=== PATIENT | male | born 1945 | race Caucasian/White ===

== ENCOUNTER 2025-01-05 20:58 | Emergency (ER) | payer MEDICARE, SELFPAY ==
--- NOTE | 2025-01-05 | ECG_ITS ---
Test Reason : CHEST PAIN Blood Pressure : */* mmHG Vent. Rate : 52 BPM Atrial Rate : 52 BPM P-R Int : 140 ms QRS Dur : 84 ms QT Int : 422 ms P-R-T Axes : * 143 126 degrees QTcB Int : 392 ms Sinus bradycardia Right axis deviation Nonspecific ST abnormality Abnormal ECG No previous ECGs available Referred By: Generic ED Physician Electronically Signed By: SHASHI ESCOBEDO
--- NOTE | ~2025-01-05 | XR_ITS ---
CLINICAL HISTORY: chest pain 2 view chest x-ray Comparison: None Findings: No consolidation or effusion. Heart size is normal. Aortic atherosclerosis. No acute fracture. IMPRESSION: 1. No acute findings. This document has been electronically signed by: Devin Phillips MD on 01/05/2025 22:31:27
--- NOTE | ~2025-01-05 | CT_ITS ---
CLINICAL HISTORY: L anterior CP, ?fall CT chest with contrast Comparison: None Findings: The heart is normal size. Severe aortic atherosclerosis. No aneurysm. Great vessels are patent. The visualized thyroid and mediastinum are unremarkable. No pulmonary embolus. Mild dependent atelectasis in the right lower lobe. Lungs are otherwise clear. No pleural effusion or pneumothorax. Degenerative changes of the spine. No acute fracture. Please refer to the separate CT AP report for abdomen findings. IMPRESSION: No acute intrathoracic findings. This document has been electronically signed by: Devin Phillips MD on 01/06/2025 00:08:58
--- NOTE | ~2025-01-05 | CT_ITS ---
CLINICAL HISTORY: L ant chest LUQ ABD pain, leva lipase CT abdomen and pelvis with contrast Comparison: None Findings: No consolidation or effusion. Bilateral low-density adrenal nodules measuring 2.0 cm on the right and 1.2 cm on the left. Nodules along the surface of the posterior right hepatic lobe measuring up to 5.0 x 3.2 cm. 3.4 cm peripherally calcified soft tissue mass in the posterior left upper quadrant. 0.6 cm soft tissue nodule in the anterior left upper quadrant. Gallbladder and pancreas are within normal limits. No hydronephrosis. Symmetric contrast enhancement of the kidneys. 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 No bowel obstruction, pneumatosis or pneumoperitoneum. Colonic diverticulosis without acute inflammation. Normal appendix. Severe aortic atherosclerosis. No aneurysm. No enlarged abdominopelvic lymph nodes. Prostatomegaly. Urinary bladder is within normal limits. Degenerative changes of the spine. IMPRESSION: 1. No acute intraabdominal or pelvic pathology. 2. Soft tissue nodules along the posterior right hepatic lobe surface and in the left upper quadrant. This could be splenosis however other etiologies such as metastases can not be excluded. 3. Low-density bilateral adrenal nodules measuring 2.0 cm right and 1.2 cm left, these may be adrenal adenomas and are incompletely characterized on this study. Recommend nonemergent MRI or CT of the adrenal glands for further evaluation This document has been electronically signed by: Devin Phillips MD on 01/06/2025 00:20:59
--- NOTE | ~2025-01-05 | CT_ITS ---
CLINICAL HISTORY: confusion, ?fall CT head without contrast Comparison: None Findings: No intra-axial mass, midline shift, hydrocephalus, or acute hemorrhage. Diffuse volume loss. Periventricular and subcortical white matter hypoattenuation likely chronic small-vessel ischemic changes. Intracranial atherosclerosis. Mild mucosal thickening in the right maxillary sinus. No acute findings in the orbits. No skull fracture. IMPRESSION: 1. No acute intracranial findings. This document has been electronically signed by: Devin Phillips MD on 01/05/2025 23:04:10
[2025-01-05 21:03] VITALS: BP 124/76; PULSE 58; O2SAT 100
[2025-01-05 21:10] VITALS: BP 105/68; PULSE 61; RESP 18; O2SAT 100; BMI 26.6
--- NOTE | 2025-01-05 21:31 | ED.CHESTPAIN ---
HPI - Chest Pain General Chief Complaint: Chest Pain Stated Complaint: chest pain x 1hr Time Seen by Provider: 01/05/25 21:14 Source: patient and EMS Mode of arrival: EMS Limitations: no limitations History of Present Illness ED Provider: Brenna Carrasquillo NP HPI narrative: Patient is a 79-year-old male with past medical history of hypertension who presents emergency department via EMS. When asking the patient why he is here today he states he does not recall why, he is not sure how he got here, he additionally is not certain who might have called EMS. Per EMS report patient called. He lives alone. When asked how he is feeling he endorses having pain and pointing to the left anterior chest. He has a hard time describing the pain. He did not have the pain earlier this morning but seems it would not have come on throughout today. When asked he admits to having nausea over the past few days but denies any vomiting. His daughters are at bedside, they do admit that he has been having memory issues over the past year that is typically exacerbated when he drinks alcohol. He typically drinks daily about a half a pt of vodka and a 6 pack of beers. Daughters report that he has never really quit drinking for quite some time but are not aware of any history of DTs/alcohol withdrawal seizures. They report at this time his mentation appears to be at baseline and what they would expect of him when he is drinking at night. They did notice that he has an abrasion to his left elbow they are not certain whether he may have fallen. He is moving the elbow freely without difficulty. Related Data Allergies Allergy/AdvReac Type Severity Reaction Status Date / Time No Known Allergies Allergy Verified 01/05/25 21:13 Review of Systems Review of Systems: Yes all other systems are reviewed and are negative [facility] Past Medical History Attestation statement: The following information was validated with the patient. Source: old records reviewed Social History Social History Alcohol intake: current Alcohol intake frequency: 3 or more drinks per day Alcohol type: hard liquor Smoked in Last 30 Days: Yes Use of substances other than those prescribed or required for medical reasons: No Advance Directives: No Advance Directives Information Provided: No Do you have a plan to hurt others: No Plan Physical Exam Vital Signs: Vital Signs: Last Vital Signs Temp 98.4 F 01/06/25 02:52 Pulse 58 01/06/25 02:52 Resp 16 01/06/25 02:52 BP 133/65 01/06/25 02:52 Pulse Ox 98 01/06/25 02:52 O2 Del Method Room Air 01/06/25 02:52 BMI result Body Mass Index 26.6 Appearance: Alert.?Oriented to person, place and time. No acute distress.?Normal affect. Head: Normocephalic, atraumatic Eyes: Pupils equal, round and reactive to light.? EOMI. No nystagmus. ENT: Pharynx normal.?? Neck: Normal inspection.? Neck supple.??No JVD. Full range of motion, no nuchal rigidity. No midline cervical spine tenderness, step-offs, deformities. CVS: Heart sounds normal. Normal heart rate and rhythm.? Pulses normal.?? Respiratory: No respiratory distress.? Lung sounds diminished bilaterally. No crepitus. No palpable deformities of the chest wall. Significant tenderness upon palpation of the left anterior lower chest wall. Abdomen: Soft left upper quadrant tenderness upon palpation Normoactive bowel sounds. No pulsatile mass.?? Skin: Skin warm and dry.? Normal skin color.? ?? Extremities: No lower extremity edema.? No calf ttp?left elbow with superficial abrasion, full range of motion, 2+ radial pulse, unlikely fracture dislocation Neuro: Moves all extremities spontaneously. Sensation intact bilaterally. CN II-XII intact. No focal neuro deficits. Ambulates with unsteady gait Course Reevaluation(s) Reevaluation #1: CT of the head and chest without acute pathology. CT of the abdomen and pelvis without evidence to suggest acute pancreatitis. There is soft tissue nodules along the posterior right hepatic lobe and in the left upper quadrant radiologist impression may be splenosis versus alternative etiology such as metastasis, bilateral adrenal nodules, recommend outpatient MRI and/or CT of the adrenal glands. Patient's daughter is at bedside I updated her on these findings. Plan at this time is to attempt clear liquid p.o. trialed to determine whether this exacerbates his pain greatly or not, in addition reviewed has a chest wall contusion as etiology of pain given it is reproducible nature and concern for a possible fall. reviewed with my attending Dr. Myers, this with chronic pancreatitis as result of the elevated lipase. I did review this case with hospitalist, Dr. Chacko, did not feel that this warranted admission, lower suspicion for acute pancreatitis, given atypical presentation of the pain no CT findings to suggest such. Patient's daughter is aware of the outpatient follow-up required for the incidental nodules as previously mentioned. Daughter is amenable to driving patient home tonight if he is able to be discharged. Pain improved greatly after receiving Toradol, tolerating clear liquids without exacerbation of pain Pending delta troponin to exclude ACS. Patient signed out to ED attending Dr. Keita pending repeat troponin, if normal I anticipate discharge home Time: 01:58 Medications Administered Discontinued Medications Generic Name Dose Route Start Last Admin Trade Name Freq PRN Reason Stop Dose Admin Sodium Chloride 1,000 mls @ 999 mls/hr 01/05/25 22:15 01/06/25 00:26 Ns IV 01/05/25 23:15 Infused .Q1H1M ANA LUISA Infusion Iohexol 85 ml 01/05/25 22:30 01/05/25 22:31 Iohexol 350 Mg/Ml 100 Ml Infus..Btl IV 01/05/25 22:31 85 ml ONCE ONE Administration Ketorolac Tromethamine 15 mg 01/06/25 01:04 01/06/25 01:15 Ketorolac Tromethamine 15 Mg/Ml Vial IVPUSH 01/06/25 01:05 15 mg ONCE ONE Administration Medical Decision Making Medical Decision Making MDM Narrative: Patient is a 74-year-old male past medical history of hypertension who presents to the emergency department for evaluation with complaint of chest pain. No evidence of volume overload or shock on exam. EKG revealing a sinus bradycardia with ventricular rate of 52, QTC of 392, J-point elevation, no T-wave inversion, without evidence of STEMI. Low suspicion for acute PE (Wells low risk), thoracic aortic dissection, cardiac effusion / tamponade. Is uncertain whether he may have fallen given the abrasion on his elbow, he is notable tenderness in the anterior chest wall without obvious crepitus, lung sounds are diminished bilaterally, however obtain CXR is without evidence of pneumothorax. Given possibility for fall, he has confusion though according to daughters this appears to be due sign, obtaining CT head to exclude ICH, SDH, fracture, CT of the chest with contrast to exclude rib fracture, acute injury, CT abdomen and pelvis rule out pancreatitis. He is drinking daily, no reported history of alcohol withdrawal seizures or DTs, will monitor CIWA. CBC is without leukocytosis, has a macrocytic anemia that does not meet transfusion criteria, no thrombocytopenia. CBC without electrolyte derangement, no LISSETTE, LFTs within normal range, high sensitive troponin below detectable limits. Lipase is notably elevated 765, likely acute alcoholic pancreatitis. Alcohol level of 284. 01/06/2025 at 03:41 hours,Dr. Ej Keita's note: I assumed care of this patient from my colleague, nurse practitioner Brenna Carrasquillo at 02:00 hours pending the patient's repeat troponin. Patient was 1st troponin was 3.8 and repeat troponin was 4.9 which is reassuring and I did discuss this with the patient and the patient's daughter. The patient's abdominal exam revealed no significant abdominal tenderness and despite having the elevated lipase I do not think that he was pancreatitis based on this exam. He does have tenderness with palpation of his left lower chest wall over his ribs, there is no bruising this area but I suspect that his pain he was secondary to a contusion to this area most likely from a fall due to his alcohol intoxication. The patient was given printed and verbal instructions and discharged home. Differential Diagnosis Differential Diagnoses: The differential diagnosis associated with the presentation includes (See narrative above) Admission/Observation Consideration of admission/observation: Escalation of care including admission/observation considered (See narrative above and course narrative for further detail) Lab Data MDM Lab Attestation statement: I reviewed the patient's lab results. 01/05/25 21:21 01/05/25 21:29 Labs: Lab Results 01/05/25 01/05/25 01/06/25 Range/Units 21:21 21:29 02:18 WBC 8.2 (4.8-10.8) X10*3/uL RBC 4.12 L (4.60-5.80) X10*6/uL Hgb 13.9 L (14.0-18.0) g/dl Hct 40.8 L (42.0-52.0) % MCV 99.0 H (80.0-98.0) fL MCH 33.7 H (27.0-33.0) pg MCHC 34.1 (31.0-36.0) g/dl RDW 12.9 (11.0-16.0) % Plt Count 238 (160-400) X10*3/uL MPV 10.3 (9.4-12.4) fL Immature Gran % (Auto) 0.2 (0.0-0.4) % Neut % (Auto) 49.8 (45-73) % Lymph % (Auto) 39.1 (20-40) % Millard % (Auto) 7.2 (2-11) % Eos % (Auto) 3.0 (0-4) % Baso % (Auto) 0.7 (0-2) % Lymph # (Auto) 3.2 (1.2-4.9) X10*3/uL Millard # (Auto) 0.6 (0.1-1.2) X10*3/uL Eos # (Auto) 0.3 (0.0-0.4) X10*3/uL Baso # (Auto) 0.1 (0.0-0.2) X10*3/uL Abs Immat Gran (auto) 0.02 (0.00-0.03) X10*3/uL Absolute Neuts (auto) 4.1 (2.0-8.3) x10*3/uL Absolute Nucleated RBC 0.000 (0.0-0.012) X10*3/uL Nucleated RBC % (auto) 0.0 (0.0-0.2) /100WBC Sodium 141 (135-145) mmol/L Potassium 4.9 (3.3-5.1) mmol/L Chloride 106 (96-108) mmol/L Carbon Dioxide 24 (22-29) mmol/L Anion Gap 16 (12-20) BUN 17 H (9-16) mg/dL Creatinine 0.68 (0.5-1.4) mg/dL Estim Creat Clear Calc 89.5 Estimated GFR > 60 Random Glucose 112 (60-115) mg/dL Calcium 9.3 (8.4-10.2) mg/dL Magnesium 2.4 (1.6-2.6) mg/dL Total Bilirubin 0.2 (0.0-1.0) mg/dL AST 32 (5-37) U/L ALT 28 (0-40) U/L Alkaline Phosphatase 98 (39-117) U/L Troponin I High Sens 3.8 4.9 (<3.5-35.0) ng/L B-Natriuretic Peptide 153 H (<100) pg/mL Total Protein 7.5 (6.5-8.0) g/dL Albumin 3.8 (3.5-5.0) g/dL Lipase 765 H (8-78) U/L Ethyl Alcohol 284 mg/dL Influenza Type A (PCR) NEGATIVE (Negative) Influenza Type B (PCR) NEGATIVE (Negative) RSV RNA Qual (PCR) NEGATIVE (Negative) SARS-CoV-2 RNA (RT-PCR) NEGATIVE (Negative) Independent Interpretation I performed an independent interpretation of an: EKG (See narrative above) and CT Scan (No ICH, no SDH) Radiology Impression Discussion of test interpretation with radiology: I have reviewed the radiologist's reading. Radiologist Impression: IMPRESSION: CXR 2 view 1. No acute findings. CT head without contrast Comparison: None Findings: No intra-axial mass, midline shift, hydrocephalus, or acute hemorrhage. Diffuse volume loss. Periventricular and subcortical white matter hypoattenuation likely chronic small-vessel ischemic changes. Intracranial atherosclerosis. Mild mucosal thickening in the right maxillary sinus. No acute findings in the orbits. No skull fracture. IMPRESSION: 1. No acute intracranial findings. CT chest with contrast Comparison: None Findings: The heart is normal size. Severe aortic atherosclerosis. No aneurysm. Great vessels are patent. The visualized thyroid and mediastinum are unremarkable. No pulmonary embolus. Mild dependent atelectasis in the right lower lobe. Lungs are otherwise clear. No pleural effusion or pneumothorax. Degenerative changes of the spine. No acute fracture. Please refer to the separate CT AP report for abdomen findings. IMPRESSION: No acute intrathoracic findings. IMPRESSION: CT AP with contrast 1. No acute intraabdominal or pelvic pathology. 2. Soft tissue nodules along the posterior right hepatic lobe surface and in the left upper quadrant. This could be splenosis however other etiologies such as metastases can not be excluded. 3. Low-density bilateral adrenal nodules measuring 2.0 cm right and 1.2 cm left, these may be adrenal adenomas and are incompletely characterized on this study. Recommend nonemergent MRI or CT of the adrenal glands for further evaluation Independent Historian Clinical information obtained from an independent historian. History obtained from or confirmed by: Other (Daughters as per HPI) Discharge Plan Discharge Clinical Impression: Chest pain, Adrenal nodule, Alcohol use disorder Patient Disposition: Home, Self-Care Instructions: Chest Pain (ED), Alcohol Use Disorder (ED) Additional Instructions: As mentioned, his imaging today does not show any acute/obvious cause for the pain that he is experiencing. We did discuss concern for a potential fall given the abrasions on his arm, pain in his chest may be secondary to internal bruising/contusion can be very painful. He received a dose of Toradol/and IV anti-inflammatory meds in the emergency department with great improvement in his pain. Additionally as mentioned, there were incidental nodules noted in the CT scan of his abdomen and pelvis which should be discussed with his primary care provider to arrange for further outpatient follow-up and evaluation. Nodule seen on this type of imaging, can be difficult to differentiate between whether this is benign or malignant/cancerous, so it is very important that you follow-up closely with primary care doctor for further evaluation. IMPRESSION: CT abdomen and pelvis with IV contrast 1. No acute intraabdominal or pelvic pathology. 2. Soft tissue nodules along the posterior right hepatic lobe surface and in the left upper quadrant. This could be splenosis however other etiologies such as metastases can not be excluded. 3. Low-density bilateral adrenal nodules measuring 2.0 cm right and 1.2 cm left, these may be adrenal adenomas and are incompletely characterized on this study. Recommend nonemergent MRI or CT of the adrenal glands for further evaluation Referrals: Physician,Monalisa J [Primary Care Provider] - Print Language: Georgian
[2025-01-05 21:38] LABS: MANUAL DIFF FLAG NO
[2025-01-05 21:40] LABS: Basophils Absolute Auto 0.1 X10*3/uL (0.0-0.2); Basophils Percent Auto 0.7 % (0-2); Eosinophils Absolute Auto 0.3 X10*3/uL (0.0-0.4); Hematocrit 40.8 % (42.0-52.0); Hemoglobin 13.9 g/dl (14.0-18.0); Imm Gran Abs Auto 0.02 X10*3/uL (0.00-0.03); Imm Gran Pct Auto 0.2 % (0.0-0.4); Lymphocytes Absolute Auto 3.2 X10*3/uL (1.2-4.9); Lymphocytes Percent Auto 39.1 % (20-40); Mean Corpuscular HGB Conc 34.1 g/dl (31.0-36.0); Mean Corpuscular Hemoglobin 33.7 pg (27.0-33.0); Mean Platelet Volume 10.3 fL (9.4-12.4); Monocytes Absolute Auto 0.6 X10*3/uL (0.1-1.2); Monocytes Percent Auto 7.2 % (2-11); Neutrophils Absolute Auto 4.1 x10*3/uL (2.0-8.3); Neutrophils Percent Auto 49.8 % (45-73); Platelet Count 238 X10*3/uL (160-400); Red Blood Count 4.12 X10*6/uL (4.60-5.80); Red Cell Distribution Width 12.9 % (11.0-16.0); White Blood Count 8.2 X10*3/uL (4.8-10.8)
[2025-01-05 21:58] LABS: Alanine Aminotransferase 28 U/L (0-40); Albumin Level 3.8 g/dL (3.5-5.0); Alkaline Phosphatase 98 U/L (39-117); Anion Gap 16 (12-20); Aspartate Amino Transferase 32 U/L (5-37); Bilirubin Total 0.2 mg/dL (0.0-1.0); Blood Urea Nitrogen 17 mg/dL (9-16); Calcium 9.3 mg/dL (8.4-10.2); Carbon Dioxide 24 mmol/L (22-29); Chloride 106 mmol/L (96-108); Creatinine Clr Calc Pharmacy 89.5; Estimated Glomerular Filt Rate > 60; Ethanol 284 mg/dL; Glucose Random 112 mg/dL (60-115); Magnesium 2.4 mg/dL (1.6-2.6); Potassium 4.9 mmol/L (3.3-5.1); Sodium 141 mmol/L (135-145); Total Protein 7.5 g/dL (6.5-8.0)
[2025-01-05 22:03] LABS: Troponin-I High Sensitivity 3.8 ng/L (<3.5-35.0)
[2025-01-05 22:04] LABS: B Type Natriuretic Peptide 153 pg/mL (<100)
[2025-01-05 22:08] LABS: Lipase 765 U/L (8-78)
[2025-01-05 22:16] LABS: Influenza A PCR NEGATIVE (Negative); Influenza B PCR NEGATIVE (Negative); Resp Syncy Virus RNA Qual PCR NEGATIVE (Negative); SARS COV2 PCR INHOUSE NEGATIVE (Negative)
[2025-01-05] MEDS: iohexoL 350 MG/ML 100 ML INFUS..BTL 85 ML IV (22:31)
[2025-01-05] MEDS: 0.9 % Sodium Chloride 1,000 ML 999 ML IV (22:42)
[2025-01-05 23:03] VITALS: BP 125/58; PULSE 67; RESP 16; O2SAT 97
[2025-01-06 00:11] VITALS: BP 131/58; PULSE 57; RESP 17; TEMP 36.4; O2SAT 99
--- NOTE | 2025-01-06 00:30 | PC.NURSE ---
assumed care of pt at 23:15
[2025-01-06] MEDS: Ketorolac Tromethamine 15 MG/ML VIAL IVPUSH (01:15)
[2025-01-06 02:46] LABS: Troponin-I High Sensitivity 4.9 ng/L (<3.5-35.0)
[2025-01-06 02:52] VITALS: BP 133/65; PULSE 58; RESP 16; TEMP 36.9; O2SAT 98
[2025-01-06 04:12] VITALS: BP 137/69; PULSE 60; RESP 16; TEMP 36.9; O2SAT 97
== END 2025-01-06 04:14 | disposition home or self-care (01) ==
PROVIDERS: Emergency Medicine; Nurse Practitioner Family; Emergency Provider Emergency Medicine Emergency Medical Services
DX: R07.9 Chest pain, unspecified (principal); E27.9 Disorder of adrenal gland, unspecified; F10.99 Alcohol use, unspecified with unspecified alcohol-induced disorder; Y90.8 Blood alcohol level of 240 mg/100 ml or more; R10.12 Left upper quadrant pain; Z03.818 Encounter for observation for suspected exposure to other biological agents ruled out
CPT/HCPCS: 0241U; 36415; 70450; 71046; 71260; 74177; 80053; 80307; 83690; 83735; 83880; 84484; 85025; 93005; 96361; 96374; 99284; 99285; J1885; Q9967

== ENCOUNTER → 2025-01-05 21:05 | Outpatient (BNV) | payer MEDICARE, SELFPAY | PROVIDERS: Emergency Provider Emergency Medicine Emergency Medical Services; Visit Provider Internal Medicine | DX: R07.9 Chest pain, unspecified (principal); R00.1 Bradycardia, unspecified; R94.31 Abnormal electrocardiogram [ECG] [EKG] | CPT/HCPCS: 93010 ==

== ENCOUNTER → 2025-01-05 21:28 | Outpatient (BNV) | payer OTHER, MEDICARE, SELFPAY | PROVIDERS: Emergency Provider Emergency Medicine; Visit Provider Radiology Diagnostic Radiology | DX: R10.12 Left upper quadrant pain (principal); K76.89 Other specified diseases of liver; R07.9 Chest pain, unspecified; I67.2 Cerebral atherosclerosis | CPT/HCPCS: 70450; 71046; 71260; 74177 ==